=== PATIENT | female | born 1955 | race African-American/Black ===

== ENCOUNTER → 2024-08-20 | Day surgery (SDC) | payer OTHER, BC ==
--- NOTE | 2024-08-16 13:19 | RAD REPORT ---
EXAM: Chest Pa And Lat (2 Views) HISTORY: 69 years Female Pre-op pending knee arthroscopy COMPARISON: None. FINDINGS: LUNGS/PLEURA: The lungs are clear. No pleural effusions or pneumothorax. No pulmonary edema. CARDIAC/MEDIASTINUM: The cardiac silhouette is within normal limits. UPPER ABDOMEN: No significant abnormality. BONES: No acute abnormality. Fusion hardware in the lumbar spine. LINES/TUBES/OTHER: N/A IMPRESSION: No evidence of acute cardiopulmonary disease.
[2024-08-16 14:25] LABS: Absolute Eosinophils 0.1 K/uL (0-0.5); Absolute Lymphocytes (CBC) 1.9 K/uL (0.7-4.9); Absolute Monocytes 0.5 K/uL (0.1-1.3); Absolute Neutrophil 1.9 K/uL (1.8-8.0); Basophils % 0.2 % (0-1.3); Eosinophils % 1.9 % (0-4.4); Hematocrit 35.5 % (36.0-45.0); Hemoglobin 12.1 g/dL (12.0-15.0); Lymphocytes % 43.3 % (15.3-44.8); MCH 29.4 pg (27.0-35.0); MCV 86.4 fL (80-100); Monocytes % 11.7 % (3.3-12.3); Neutrophils % 42.9 % (41.7-73.7); Platelets 171 thou/uL (152-406); RBC Red Blood Cell Count 4.11 M/uL (3.86-4.86); Red Cell Distribution Width 14.2 % (12.1-15.2)
[2024-08-16 14:28] LABS: PT Prothrombin Time 11.6 SECONDS (10-13.0); PTT, Activated Partial Thromb 32.4 SECONDS (27.2-37.4); Protime INR 1.02
[2024-08-16 14:41] LABS: Anion Gap 6.2 mEq/L (5.0-15.0); Potassium 3.2 mEq/L (3.5-5.1)
[~2024-08-20] MED LIST: FENTANYL CITR 100 MCG/2 ML ONE; KETOROLAC 30 MG/ML INJ ONE; LIDOCAINE 2% MPF 5 ML VIAL ONE; MIDAZOLAM HCL 2 MG/2 ML INJ ONE; ONDANSETRON 4 MG/2 ML VIAL ONE; dexAMETHasone 10 MG/ML VIAL ONE; propofoL 200 MG/20 ML VIAL IV ONE
[2024-08-20] MEDS: NA CHLORIDE 0.9% 1,000 ML ONE (07:37)
[2024-08-20] MEDS: CEFAZOLIN SODIUM 2 GM/VIAL ONE (07:53)
[2024-08-20] MEDS: BUPIVACAINE 0.25% PF 30 ML VIAL ONE (08:46)
--- NOTE | 2024-08-20 09:50 | P.BOP ---
Preoperative diagnosis: Right knee loose bodies, right knee osteoarthritis Postoperative diagnosis: Same, right knee medial and lateral meniscal tears Primary procedure: Right knee arthroscopic removal loose bodies x 3 Secondary procedure: Right knee arthroscopic partial medial and lateral meniscectomies [employer]: NONE,NONE Estimated blood loss: 3 cc Specimen: 3 right knee loose bodies Findings: See dictation Anesthesia: General Complications: None Implants: None Fluids & blood products: Per anesthesia record Transferred to: Recovery Room Condition: Good
[2024-08-20] MEDS: HYDROCODONE/APAP 5/325 MG TAB ONE (10:27)
[2024-08-20 10:35] VITALS: BP 136/70; TEMP 97.4; O2SAT 100
== END ==
LOC: OR 07:05
PROVIDERS: ATTEND Orthopaedic Surgery Sports Medicine
PROC: 0SBC4ZZ Excision of Right Knee Joint, Percutaneous Endoscopic Approach (ICD-10-PCS; 2024-08-20)
PROC: 0SBC4ZZ Excision of Right Knee Joint, Percutaneous Endoscopic Approach (ICD-10-PCS; principal; 2024-08-20 08:00)
DX: M23.41 Loose body in knee, right knee (principal)
CPT/HCPCS: 29880; 93005; 85025; 80048; 36415; 85610; 82947 ×2; 88300; 85730; 71046; J2704; J2003; J2250; J3010; J1100; J2405; J7030